=== PATIENT | male | born 1955 | race Caucasian/White ===

== ENCOUNTER 2018-05-21 13:40 | Emergency (ER) | payer OTHER ==
[2018-05-21 13:46] VITALS: BMI 22.8
--- NOTE | 2018-05-21 13:49 | PDOC ---
History of Present Illness - General Chief Complaint: Seizure Stated Complaint: SEIZURE Time Seen by Provider: 05/21/18 13:49 - History of Present Illness Initial Comments: 62yo M with PMH of seizure disorder and schizoaffective disorder presenting with seizure. Patient is adherent with seizure medication, Keppra 750 BID and Primidone 250 TID. He suffered his first seizure one month ago and was evaluated at [facility]. According to Dr. Silverio, patient declined further workup beyond blood glucose checks and was discharged. Patient had another seizure about an hour later at a [facility]. He endorses having an aura before seizing and was able to sit in a chair before the seizure occurred. Denies hitting his head or fall. Reports urinary incontinence, but no tongue or lip biting. Most recent seizure before today was about five or six months ago. Patient reports his medication changed last month, instead of one 750mg tablet, he was prescribed 250mg tablets which he took twice a day. He currently reports feeling like he is at his baseline. No fevers, chills, chest pain, or shortness of breath. Past History - Past Medical History Allergies/Adverse Reactions: Allergies Allergy/AdvReac Type Severity Reaction Status Date / Time No Known Allergies Allergy Verified 05/21/18 13:44 Home Medications: Ambulatory Orders Primidone [Mysoline -] 250 mg PO TID #90 tablet 05/21/18 levETIRAcetam [Keppra -] 750 mg PO BID #180 tablet 05/21/18 COPD: No Psychiatric Problems: Yes Seizures: Yes - Suicide/Smoking/Psychosocial Hx Smoking History: Never smoked Review of Systems - Review of Systems Comments:: Constitutional: no fever, no chills HEENT: no throat pain, no dysphagia Cardiovascular: no chest pain, no palpitations Respiratory: no cough, no shortness of breath Gastrointestinal: no abdominal pain, no nausea Genitourinary: no dysuria, no frequency Musculoskeletal: no myalgia, no arthralgia Skin: no rash, +itching Neurologic: no headache, +seizure *Physical Exam - Vital Signs Last Vital Signs Temp Pulse Resp BP Pulse Ox 98.4 F 155 H 18 148/106 H 95 05/21/18 13:44 05/21/18 13:44 05/21/18 13:44 05/21/18 13:44 05/21/18 13:44 - Physical Exam Comments: General: Awake, alert, and fully oriented, in no acute distress Head: No signs of trauma Eyes: EOMI, sclera anicteric ENT: Dry mucus membranes, poor dentition Neck: Normal ROM, supple Lungs: Lungs clear, Normal breath sounds Cardio: Tachycardic, S1 and S2 present Abdomen: Soft, nondistended Extremities: Normal range of motion, Distal pulses present SKIN: Warm, Dry, normal turgor; excoriations on anterior RUE Neurologic: Cranial nerves II through XII intact. Normal speech, sensation, strength, coordination, and gait. Moderate Sedation - Procedure Monitoring Vital Signs: Procedure Monitoring Vital Signs Temperature 98.4 F 05/21/18 13:44 Pulse Rate 155 H 05/21/18 13:44 Respiratory Rate 18 05/21/18 13:44 Blood Pressure 148/106 H 05/21/18 13:44 O2 Sat by Pulse Oximetry (%) 95 05/21/18 13:44 ED Treatment Course - LABORATORY CBC & Chemistry Diagram: 05/21/18 14:46 05/21/18 15:10 Medical Decision Making - Medical Decision Making 62yo M with PMH of seizure disorder and schizoaffective disorder presenting with seizure Back to his baseline; nonfocal neurologic exam Patient likely subtherapeutic with keppra as he was taking 250 BID rather than 750 BID due to change in tablet size No injury or trauma noted. Low suspicion for other acute process like brain bleed, tumor, infection, or toxic ingestion. Regardless, sending basic labs given this it the second seizure today. 05/21/18 15:55 Labs unremarkable. No anemia or leukocytosis. Plan to discharge with keppra and primidone prescriptions. Page put out to patient's neurologist, Dr. Falk. 05/21/18 16:11 Discussed case with CATHLEEN Multani who works with Dr. Falk. Patient can call and make an appointment for follow-up. 05/21/18 16:41 Patient discharged. Instructed to take correct dose of keppra. *DC/Admit/Observation/Transfer Diagnosis at time of Disposition: Seizure - Discharge Dispostion Disposition: HOME Condition at time of disposition: Improved - Prescriptions Prescriptions: levETIRAcetam [Keppra -] 750 mg PO BID #180 tablet Primidone [Mysoline -] 250 mg PO TID #90 tablet - Referrals Referrals: Carolina Ramirez MD [Primary Care Provider] - - Patient Instructions Printed Discharge Instructions: DI for Seizure Disorder -- Adult Additional Instructions: You came to the ED for seizures. Your neurological exam and labs were normal. Keppra and primidone prescriptions sent to your pharmacy. Follow up with your neurologist this week to discuss this ED visit and to further evaluate your symptoms. We checked your blood for keppra and primidone levels but these labs take a couple days to result. Your doctor can contact us for theses values. Follow up with your primary care doctor to discuss this ED visit and get your blood pressure checked. You had a blood pressure reading today of 148/106. RETURN if: you have severe headache, high fever, persistent vomiting, changes in vision, severe muscle pain, dark (tea-colored) urine, recurrent seizures, or any other new or concerning symptoms - Post Discharge Activity
[2018-05-21] MEDS ORDERED: levETIRAcetam 500 MG/5 ML INJECTION VIAL IVPB ONE ×2 (14:56→15:45)
[2018-05-21] MEDS ORDERED: SODIUM CHLORIDE 1,000 ML IV STA (15:16)
[2018-05-21 15:46] LABS: ALBUMIN 3.2 g/dl (3.4-5.0); ALK PHOS 114 U/L (45-117); ANION GAP 7 MMOL/L (8-16); BILIRUBIN,TOTAL 0.1 mg/dL (0.2-1); BLOOD UREA NITROGEN 9 mg/dL (7-18); CALCIUM 8.4 mg/dL (8.5-10.1); CHLORIDE 107 mmol/L (98-107); CO2 26 mmol/L (21-32); CREATININE 0.7 mg/dL (0.55-1.3); GLUCOSE,RANDOM 130 mg/dL (74-106); POTASSIUM 4.2 mmol/L (3.5-5.1); SGOT/AST 10 U/L (15-37); SGPT/ALT 20 U/L (13-61); SODIUM 140 mmol/L (136-145)
[2018-05-21 15:55] LABS: BASO % 1.3 % (0-2.0); EOS % 1.7 % (0-4.5); HEMATOCRIT 38.8 % (35.4-49); HEMOGLOBIN 13.3 GM/dL (11.7-16.9); LYMPH % 20.7 % (8-40); MCH 33.4 pg (25.7-33.7); MCHC 34.2 g/dl (32.0-35.9); MEAN CELL VOLUME 97.7 fl (80-96); MEAN PLT VOLUME 8.9 fl (7.5-11.1); NEUT % 67.3 % (42.8-82.8); PLATELET COUNT 235 K/MM3 (134-434); RBC 3.97 M/mm3 (4.00-5.60); RDW 14.9 % (11.9-15.9); WHITE BLOOD COUNT 5.9 K/mm3 (4.0-10.0)
--- NOTE | 2018-05-21 16:12 | PDOC ---
Attending Attestation - Resident Resident Name: Georgia Canales - ED Attending Attestation I have performed the following: I have examined & evaluated the patient, The case was reviewed & discussed with the resident, I agree w/resident's findings & plan, Exceptions are as noted - Physicial Exam PE: 05/21/18 16:02 awake alert lungs clear bilaterally, heart rrr no mrg abd soft nt nd. ext wwp no edema. no calf tenderness. nuero alert oriented x 3. 5/5 all four ext. speech clear. CN intact. calm cooperative. skin warm and dry. - Medical Decision Making 05/21/18 16:03 62 yo M h/o siezure disorder, schizoaffective here with seizure today x 2. pratima lives [place], was waiting at [facility], and had siezure. was seen at [facility] earlier today, left then had second siezure. pt states he was incorrectly given keppra 250 instead of [address] Britton [phone] on exam normal nuero exam. at [facility]. will load with keppra. basic labs r/o electrolyte abnormality. likely related to underdosing. pt labs unremarkable. will dc home. called dr Britton office, awaiting call back. <Laura Pagan - Last Filed: 05/21/18 16:02> - HPI HPI: 05/21/18 16:14 The patient is a 62 year old male, with a significant past medical history of schizoaffective disorder, HLD, and seizures (on Keppra and Primidone) who presents to the emergency department via EMS after having 2 episode of seizures. Patient states his first seizure was one month ago and was evaluated at [facility]. Patient notes having a seizure at 8 this morning while waiting for the library to open and about an hour later had another one at a [facility]. Patient notes his medication changed last month, instead of one 750mg tablet of Keppra he was prescribed 250mg tablets which he takes twice a day. The patient denies new headaches, weakness or numbness. The patient denies chest pain, shortness of breath, headache and dizziness. The patient denies fever, chills, nausea, vomit, diarrhea and constipation. The patient denies dysuria, frequency, urgency and hematuria. Allergies: NKA Past surgical history: Social history: No reported PCP: Dr. Carolina Ramirez <Ti Peres - Last Filed: 05/21/18 16:17> Attestations - Attestations 05/21/18 16:16 Documentation prepared by Ti Peres, acting as medical office professional instructor for Laura Pagan MD, <Ti Peres - Last Filed: 05/21/18 16:17>
[2018-05-21 17:31] VITALS: BP 135/78; PULSE 101; TEMP 98
--- NOTE | 2018-05-22 13:08 | EKG ---
Test Reason : Blood Pressure : / mmHG Vent. Rate : 104 BPM Atrial Rate : 104 BPM P-R Int : 154 ms QRS Dur : 082 ms QT Int : 348 ms P-R-T Axes : 053 -36 046 degrees QTc Int : 457 ms SINUS TACHYCARDIA POSSIBLE LEFT ATRIAL ENLARGEMENT LEFT AXIS DEVIATION NONSPECIFIC T WAVE ABNORMALITY ABNORMAL ECG NO PREVIOUS ECGS AVAILABLE Confirmed by GARRY LEVIN MD ([id number]) on 05/22/2018 1:07:55 PM Referred By: Confirmed By:GARRY LEVIN MD
[2018-05-24 16:17] LABS: PRIMIDONE, SERUM 13.7 ug/mL (5.0-12.0)
== END 2018-05-21 16:52 | disposition home or self-care (01) ==
LOC: JER 13:40
PROC: 3E0337Z Introduction of Electrolytic and Water Balance Substance into Peripheral Vein, Percutaneous Approach (ICD-10-PCS; principal; 2018-05-21)
PROC: 3E033GC Introduction of Other Therapeutic Substance into Peripheral Vein, Percutaneous Approach (ICD-10-PCS; 2018-05-21)
DX: G40.909 Epilepsy, unspecified, not intractable, without status epilepticus (principal); F25.9 Schizoaffective disorder, unspecified
CPT/HCPCS: 36415; 80053; 80177; 80184; 80188; 85025; 93005; 93010; 99283-25; J7030

== ENCOUNTER 2021-07-11 12:40 | Emergency (ER) | payer OTHER ==
[2021-07-11 13:30] LABS: EOS % 2.6 % (0-4.5); HEMATOCRIT 40.7 % (35.4-49); HEMOGLOBIN 13.4 GM/dL (11.7-16.9); LYMPH % 8.5 % (8-40); MCH 30.5 pg (25.7-33.7); MCHC 32.8 g/dl (32.0-35.9); MEAN CELL VOLUME 92.8 fl (80-96); MEAN PLT VOLUME 8.3 fl (7.5-11.1); MONO % 8.4 % (3.8-10.2); NEUT % 79.5 % (42.8-82.8); PLATELET COUNT 330 10^3/uL (134-434); RBC 4.39 M/mm3 (4.00-5.60); RDW 15.1 % (11.9-15.9)
[2021-07-11 13:31] VITALS: BP 167/88; PULSE 93; TEMP 98.8; BMI 27.1
[2021-07-11 13:56] LABS: CALCIUM 8.8 mg/dL (8.5-10.1)
[2021-07-11 13:57] LABS: ALBUMIN 3.6 g/dl (3.4-5.0); BLOOD UREA NITROGEN 14.3 mg/dL (7-18); MAGNESIUM 2.4 mg/dL (1.8-2.4)
[2021-07-11 13:59] LABS: CREATININE 0.8 mg/dL (0.55-1.3)
[2021-07-11 14:01] LABS: BILIRUBIN,TOTAL 0.2 mg/dL (0.2-1); TOT PROT 7.2 g/dl (6.4-8.2)
[2021-07-11] MEDS ORDERED: levETIRAcetam 500 MG TABLET (FP) PO ONE ×2 (17:47→17:48)
== END 2021-07-11 19:11 | disposition home or self-care (01) ==
LOC: JER 12:40
DX: G40.89 Other seizures (principal)
CPT/HCPCS: 36415; 70450-TC; 71045-TC-FY; 80053; 80177; 83735; 85025; 93005; 93010; 99285-25